=== PATIENT | female | born 1950 | race Caucasian/White ===

== ENCOUNTER 2020-01-21 10:39 | Outpatient (CLI) | payer MEDICARE, MEDICAID, SELFPAY ==
--- NOTE | ~2020-01-21 | MM_ITS ---
EXAMINATION: MM screening torie BI w daysi HISTORY: Screening mammogram TECHNIQUE: Craniocaudal and mediolateral oblique 3-D tomosynthesis images were obtained and synthetic 2-D images were generated. CAD analysis was submitted and interpreted. COMPARISON: 10/16/2018, 10/14/2017, 10/12/2016 bilateral digital screening mammogram examinations BREAST PARENCHYMAL COMPOSITION: There are scattered areas of fibroglandular density. FINDINGS: Stable since 5 5 mm opacity in the lower inner right breast with adjacent biopsy marker. Th ere is no evidence of suspicious mass, calcification, or architectural distortion to suggest malignan cy in either breast. There has been no suspicious interval change. IMPRESSION: 1. No mammographic evidence of malignancy. 2. Recommend routine screening mammography in one year. BI-RADS Category 2: Benign finding(s). Reviewed, dictated and finalized at location A.
== END 2020-01-21 10:40 | disposition home or self-care (01) ==
LOC: CHSIMG 10:45
PROVIDERS: PCP Internal Medicine; Visit Provider Internal Medicine
DX: Z12.31 Encounter for screening mammogram for malignant neoplasm of breast (principal)
CPT/HCPCS: 77063; 77067

== ENCOUNTER 2020-01-24 13:24 | Outpatient (CLI) | payer MEDICARE, MEDICAID, SELFPAY ==
--- NOTE | 2020-01-24 13:40 | ECG_ITS ---
Measurements Intervals [employer] Rate: 64 P: 69 DE: 232 QRS: 43 QRSD: 101 T: 1 QT: 425 QTc: 440 Interpretive Statements SINUS RHYTHM WITH FIRST DEGREE AV BLOCK VENTRICULAR PREMATURE COMPLEX BORDERLINE ST-T WAVE ABNORMALITY- INFERIOR LEADS ABNORMAL ECG Electronically Signed On 01-24-2020 16:18:31 CDT by Azeem Patyon D.O.
== END 2020-01-24 13:25 | disposition home or self-care (01) ==
LOC: CHSCARD 13:31
PROVIDERS: PCP Specialist; Visit Provider Specialist
DX: I49.9 Cardiac arrhythmia, unspecified (principal)
CPT/HCPCS: 93005

== ENCOUNTER 2020-02-13 09:34 | Outpatient (CLI) | payer MEDICARE, MEDICAID, SELFPAY ==
--- NOTE | ~2020-02-13 | DEXA_ITS ---
BMD(1) Young-Adult(2) Age-Matched(3) Region (g/cm2) T-score Z-score WHO Classification L1 0.962 -1.5 -0.3 Osteopenia L2 1.030 -1.5 -0.3 Osteopenia L3 1.224 0.1 1.3 Normal L4 1.332 0.9 2.1 Normal L1-L4 1.153 -0.3 0.9 Normal Trend: L1-L4 Change vs Change vs Measured Age BMD(1) Baseline Previous Date (years) (g/cm2) (%) (%) 02/13/2020 [age] 1.153 26.0* 7.1* 10[age]05/2017 67.1 1.077 17.7* 4.4* 04[age]09/2015 64.7 1.032 12.8* 1.4 03[age]30[birth year]2013 62.6 1.018 11.3* 11.3* 02[age]19/2011 [age] 0.915 baseline - * - Indicates significant change based on 95% confidence interval. 1 - Statistically 68% of repeat scans fall within 1SD (+- 0.010 g/cm2 for AP Spine L1-L4) 2 - [place] (Combined NHANES (ages 20-30) / XYDO (ages 20-40)) AP Spine Reference Population (v112) 3 - Matched for Age, Weight (females 25-100 kg), Ethnic 11 - World Health Organization - Definition of Osteoporosis and Osteopenia for Women: Normal = T-score at or above -1.0 SD; Osteopenia = T-score between -1.0 and -2.5 SD; Osteoporosis = T-score at or below -2.5 SD; (WHO definitions only apply when a young healthy Women reference database is used to determine T-scores.) Printed: 02/13/2020 10:22:53 AM (13.60)76:3.00:50.00:12.0 0.00:10.44 0.60x1.05 26.4:%Fat=53.8% 0.00:0.00 0.00:0.00 Filename: [id number] Scan Mode: Standard;OneScan 37.0 [place] [id number] BMD(1) Young-Adult(2,7) Age-Matched(3) Region (g/cm2) T-score Z-score WHO Classification Neck Left 0.745 -2.1 -0.7 Osteopenia Right 0.756 -2.0 -0.7 Osteopenia Mean 0.751 -2.1 -0.7 Osteopenia Difference 0.011 0.1 0.1 - Total Left 0.751 -2.0 -0.9 Osteopenia Right 0.766 -1.9 -0.8 Osteopenia Mean 0.758 -2.0 -0.9 Osteopenia Difference 0.015 0.1 0.1 - Hip Lagrange Length Comparison (mm) (Right = 100.3 mm) (Mean = 107.9 mm) (Left = 102.9 mm) Trend: Total Mean Change vs Change vs Measured Age BMD(1) Baseline Previous Date (years) (g/cm2) (%) (%) 02[age]13/2020 69.5 0.758 10.2* 4.3* 03[age]30/2013 62.6 0.727 5.7* 5.7* 02/19/2011 60.5 0.688 baseline - * - Indicates significant change based on 95% confidence interval. 1 - Statistically 68% of repeat scans fall within 1SD (+- 0.010 g/cm2 for DualFemur Total) 2 - [place] (Combined NHANES (ages 20-30) / XYDO (ages 20-40)) Femur Reference Population (v112) 3 - Matched for Age, Weight (females 25-100 kg), Ethnic 7 - DualFemur Total T-score difference is 0.1. Asymmetry is None. 11 - World Health Organization - Definition of Osteoporosis and Osteopenia for Women: Normal = T-score at or above -1.0 SD; Osteopenia = T-score between -1.0 and -2.5 SD; Osteoporosis = T-score at or below -2.5 SD; (WHO definitions only apply when a young healthy Women reference database is used to determine T-scores.) Printed: 02/13/2020 10:22:53 AM (13.60); Filename: [id number]; Right Femur; 17.7:%Fat=35.8%; Neck Angle (deg)= 59; Scan Mode: Standard 37.0 uGy; Left Femur; 17.8:%Fat=38.9%; Neck Angle (deg)= 69; Scan Mode: Standard 37.0 uGy [employer] [id number] Dear Char Persaud, Your patient Shirley Rose completed a BMD test on 02/13/2020 using the [employer] DXA System (analysis version: 13.60) manufactured
== END 2020-02-13 09:35 | disposition home or self-care (01) ==
LOC: CHSIMG 09:37
PROVIDERS: PCP Internal Medicine; Visit Provider Internal Medicine
DX: M81.0 Age-related osteoporosis without current pathological fracture (principal)
CPT/HCPCS: 77080

== ENCOUNTER 2021-01-22 08:15 | Outpatient (CLI) | payer MEDICARE, MEDICAID, SELFPAY ==
--- NOTE | ~2021-01-22 | MM_ITS ---
EXAMINATION: MM screening torie BI w daysi HISTORY: Screening mammogram TECHNIQUE: Craniocaudal and mediolateral oblique 3-D tomosynthesis images were obtained and synthetic 2-D images were generated. CAD analysis was submitted and interpreted. COMPARISON: 01/21/2020, 10/16/2018, 10/14/2017 bilateral digital screening mammogram examinations BREAST PARENCHYMAL COMPOSITION: There are scattered areas of fibroglandular density. FINDINGS: There is a biopsy marker associated with a stable circumscribed approximately 7 mm opacity in the lower inner quadrant of the right breast. There is no evidence of suspicious mass, calcificati on, or architectural distortion to suggest malignancy in either breast. There has been no suspicious interval change. IMPRESSION: 1. No mammographic evidence of malignancy. 2. Recommend routine screening mammography in one year. BI-RADS Category 2: Benign finding(s). Reviewed, dictated and finalized at location A.
== END 2021-01-22 08:16 | disposition home or self-care (01) ==
LOC: CHSIMG 08:16
PROVIDERS: PCP Internal Medicine; Visit Provider Internal Medicine
DX: Z12.31 Encounter for screening mammogram for malignant neoplasm of breast (principal)
CPT/HCPCS: 77063; 77067

== ENCOUNTER 2021-12-04 19:57 | Emergency (ER) | payer MEDICARE, MEDICAID, SELFPAY ==
--- NOTE | ~2021-12-04 | CT_ITS ---
EXAMINATION: CT cervical spine wo con DATE: 12/04/2021 20:35 INDICATION: Patient fell today. Head and neck pain. TECHNIQUE: Computed tomography (CT) of the cervical spine was performed without intravenous contrast. Automated exposure control and iterative reconstruction technique were employed. Exam dose: 681.00 mGy-cm total exam DLP. COMPARISON: None FINDINGS: There is reversal of cervical curvature which may be due to positioning and/or muscle spasm . There is mild dextro scoliosis of the cervical spine. No fracture or dislocation or locked facet or prevertebral soft tissue swelling. There is mild degenerative disc disease at C5-6. Remaining cervical interspaces are relatively well p reserved.. There is mild degenerative change at the apophyseal joints. IMPRESSION: Reversal of cervical curvature and mild dextroscoliosis of cervical spine No fracture or dislocation or locked facet Mild degenerative disc disease at C5-6 Reviewed, dictated and finalized at Location A. Reviewed, dictated and finalized at location A. IMPRESSION: Reversal of cervical curvature and mild dextroscoliosis of cervica l spine No fracture or dislocation or locked facet Mild degenerative disc disease at C5-6
--- NOTE | ~2021-12-04 | CT_ITS ---
EXAMINATION: CT brain wo con DATE: 12/04/2021 20:34 INDICATION: Fall today. Neck and head pain TECHNIQUE: Computed tomography (CT) of the head was performed without intravenous contrast. The mA wa s adjusted according to patient size. Iterative reconstruction technique was employed. Exam dose: 68 1.00 mGy-cm total exam DLP. COMPARISON: 02/01/2018 MRI brain 04/22/2017 CT head FINDINGS: Bilateral carotid siphon internal carotid artery calcifications. There is nonspecific dimin ished attenuation of the cerebral white matter, likely due to chronic small vessel ischemic changes. There is moderate cerebral and cerebellar volume loss. No intracranial mass lesion or hemorrhage, midline shift or mass effect effect. No subdural or epidur al hematoma. The mastoid air cells and included paranasal sinuses are unremarkable. No fracture or bone destruction of the cranial vault. IMPRESSION: Cerebral atherosclerosis and chronic small vessel ischemic changes of cerebral white mat ter No acute intracranial finding or skull fracture Reviewed, dictated and finalized at Location A. Reviewed, dictated and finalized at location A. IMPRESSION: Cerebral atherosclerosis and chronic small vessel ischemic changes of cerebral white matter No acute intracranial finding or skull fracture
[2021-12-04 20:14] VITALS: BP 120/68; PULSE 68; RESP 16; TEMP 36.7; O2SAT 94
--- NOTE | 2021-12-04 20:15 | ED.GENADULT ---
HPI - General Adult General Chief complaint: Fall Stated complaint: AMB History of Present Illness HPI narrative: Shirley is a 71F with an unknown PMH (suspect cognitive deficit, HTN, HLD) that was brought in by EMS from [facility] after a fall. She was walking in her room when she tripped and fell back and hit her head. There was no LOC. She denies N/V and any other pain. Related Data Home Medications Medication Instructions Recorded Confirmed apixaban 5 mg tablet (Eliquis) 5 tablet PO DAILY 12/04/21 12/04/21 buspirone 5 mg tablet 5 tablet PO DAILY 12/04/21 12/04/21 divalproex 250 mg tablet,delayed 250 tablet PO DAILY 12/04/21 12/04/21 release divalproex 500 mg tablet,delayed 500 tablet PO DAILY 12/04/21 12/04/21 release famotidine 40 mg tablet 40 tablet PO DAILY 12/04/21 12/04/21 lorazepam 0.5 mg tablet 0.5 tablet PO DAILY 12/04/21 12/04/21 memantine 5 mg tablet 5 tablet PO DAILY 12/04/21 12/04/21 metoprolol tartrate 25 mg tablet 25 tablet PO DAILY 12/04/21 12/04/21 propafenone 225 mg 225 cap PO DAILY 12/04/21 12/04/21 capsule,extended release 12 hr rosuvastatin 10 mg tablet 10 tablet PO DAILY 12/04/21 12/04/21 sertraline 50 mg tablet 50 tablet PO DAILY 12/04/21 12/04/21 Allergies Allergy/AdvReac Type Severity Reaction Status Date / Time No Known Allergies Allergy Unverified 03/05/16 08:10 Review of Systems Review of Systems: All systems reviewed & are unremarkable except as noted in HPI and below PMFSH Social History Social History Alcohol intake: never Exam Const: General: healthy appearing and no acute distress Nutritional Appearance: well nourished HENMT: Other: Contusion and swelling on the back of the head but no other injuries noted Eyes: Conjunctivae: conjunctivae normal Pupils: Equal, round and reactive pupils present EOM: EOMs intact bilaterally Neck: Neck: normal visual inspection Chest: Chest palpation & inspection: normal inspection of the chest Resp: Effort & Inspection: normal respiratory effort Auscultation: clear to auscultation bilaterally Cardio: Rate: regular rate Rhythm: regular rhythm GI: Other: Normal to inspection and not TTP Skin: General skin exam: normal color Rashes: no rashes Wounds: no wounds Neuro: General: patient oriented x3, moves all extremities and no meningeal signs Other: Oriented to person and place but not time. Extrem: Other: No deformity Psych: Mental Status: mental status grossly normal Course Course Emergency Course: EXAMINATION: CT brain wo con DATE: 12/04/2021 20:34 INDICATION: Fall today. Neck and head pain TECHNIQUE: Computed tomography (CT) of the head was performed without intravenous contrast. The mA was adjusted according to patient size. Iterative reconstruction technique was employed. Exam dose:? 681.00 mGy-cm total exam DLP.? COMPARISON: 02/01/2018 MRI brain 04/22/2017 CT head FINDINGS: Bilateral carotid siphon internal carotid artery calcifications. There is nonspecific diminished attenuation of the cerebral white matter, likely due to chronic small vessel ischemic changes. There is moderate cerebral and cerebellar volume loss. No intracranial mass lesion or hemorrhage, midline shift or mass effect effect. No subdural or epidural hematoma. The mastoid air cells and included paranasal sinuses are unremarkable. No fracture or bone destruction of the cranial vault. IMPRESSION:? Cerebral atherosclerosis and chronic small vessel ischemic changes of cerebral white matter No acute intracranial finding or skull fracture EXAMINATION: CT cervical spine wo con DATE: 12/04/2021 20:35 INDICATION: Patient fell today. Head and neck pain. TECHNIQUE: Computed tomography (CT) of the cervical spine was performed without intravenous contrast. Automated exposure control and iterative reconstruction technique were employed. Exam dose:? 681.00 mGy-cm total exam DLP.? COMPARISON: None FINDINGS: There is reversal of cervical curvature which
--- NOTE | 2021-12-04 20:55 | PC.NURSE ---
sabrina at [facility] care called that pt is ready for DC
[2021-12-04 21:01] VITALS: BP 111/61; PULSE 88; RESP 16; O2SAT 94
== END 2021-12-04 21:02 ==
PROVIDERS: Emergency Provider Family Medicine; PCP Internal Medicine
DX: S09.90XA Unspecified injury of head, initial encounter (principal); W01.0XXA Fall on same level from slipping, tripping and stumbling without subsequent striking against object, initial encounter
CPT/HCPCS: 70450; 72125; 99284

== ENCOUNTER 2022-02-15 07:04 | Outpatient (CLI) | payer MEDICARE, SELFPAY ==
[2022-02-15 07:22] LABS: Hematocrit 40.8 % (35.0-42.0); Immature Platelet Fraction Pct 1.8 % (1.0-7.0); Mean Corpuscular HGB Conc 34.3 g/dL (32.0-36.0); Mean Corpuscular Hemoglobin 32.6 pg (27.0-31.0); Mean Corpuscular Volume 95.1 fL (78.0-102.0); Mean Platelet Volume 8.9 fl (9.2-11.8); Platelet Count Result 70 K/mm3 (150-420); Red Blood Count 4.29 M/mm3 (4.20-5.40); White Blood Count 3.2 K/mm3 (4.8-10.8)
[2022-02-15 07:45] LABS: Alanine Aminotransferase 20 U/L (14-59); Albumin Level 3.3 g/dL (3.4-5.0); Alkaline Phosphatase 54 U/L (46-116); Anion Gap 7 mmol/L (8-16); Aspartate Amino Transferase 16 U/L (15-37); Bilirubin,Total 0.4 mg/dL (0.00-1.00); Blood Urea Nitrogen 17 mg/dL (7-18); Calcium 8.8 mg/dL (8.5-10.1); Carbon Dioxide 26 mmol/L (21-32); Chloride 108 mmol/L (98-108); Cholesterol 120 mg/dL (0-200); Estimated Glomerular Filt Rate 44; Free T4 Free Thyroxine 0.84 ng/dL (0.76-1.46); Glucose 89 mg/dL (70-99); HDL Direct 49 mg/dL (40-60); LDL Cholesterol Calculated 44 mg/dL (<130); Osmolality Calculated 292 mOsm/kg (285-295); Potassium 4.1 mmol/L (3.5-5.1); Sodium 141 mmol/L (136-145); Thyroid Stimulating Hormone 2.21 uIU/mL (0.36-3.74); Total Protein 5.7 g/dL (6.4-8.2); Triglycerides 134 mg/dL (0-150)
[2022-02-15 07:55] LABS: Band Neutrophils Percent 0 % (0-6); Lymphocytes Absolute Manual 1.08 K/mm3 (1.1-4.5); Lymphocytes Percent Manual 34 % (18-44); Monocytes Absolute Manual 0.57 K/mm3 (0.1-0.90); Monocytes Percent Manual 18 % (3-9); Neutrophils Absolute Manual 1.53 K/mm3 (1.7-7.2); Neutrophils Percent Manual 48 % (46-73); Platelet Estimate Decreased (Adequate); Total Cells Counted 100
[2022-02-18 22:12] LABS: Vitamin D 25 Hydroxy 45 ng/mL (30-100)
== END 2022-02-15 07:05 | disposition home or self-care (01) ==
LOC: CHSLAB 07:06
PROVIDERS: PCP Internal Medicine; Visit Provider Internal Medicine
DX: E78.5 Hyperlipidemia, unspecified (principal); I10 Essential (primary) hypertension; N39.0 Urinary tract infection, site not specified; R53.83 Other fatigue; M81.0 Age-related osteoporosis without current pathological fracture
CPT/HCPCS: 36415; 80053; 80061; 82306; 84439; 84443; 85025; 85055

== ENCOUNTER 2022-02-23 14:19 | Emergency (ER) | payer MEDICARE, MEDICAID, SELFPAY ==
--- NOTE | ~2022-02-23 | CT_ITS ---
EXAMINATION: CT abdomen pelvis wo con DATE: 02/23/2022 15:23 INDICATION: Right upper quadrant abdominal pain, nausea and vomiting, weakness for one week. TECHNIQUE: Computed tomography (CT) of the abdomen and pelvis was performed without intravenous contr ast. Automated exposure control and iterative reconstruction technique were employed. Exam dose: 722 .00 mGy-cm total exam DLP. COMPARISON: None. FINDINGS: Patchy bilateral lower lobe infiltrate and/atelectasis and minimal dependent left upper lob e infiltrate or atelectasis. No pleural or pericardial effusion. Cardiomegaly. Status post cholecystectomy. There is pancreatic atrophy. No hepatic, splenic, pancreatic, and adrena l or renal space-occupying mass lesion is detected. No urinary tract calculus or hydroureteronephrosi s. Uterus, adnexal areas and urinary bladder are unremarkable. Normal caliber of the abdominal aorta. No intraperitoneal or retroperitoneal or pelvic mass lesion or adenopathy or ascites. Small sliding hiatal hernia. Diverticulosis of the colon; no CT evidence of diverticulitis. Normal ap pendix. No bowel obstruction, bowel wall thickening, pneumatosis or intraperitoneal free air. Old healed rib fractures. IMPRESSION: Status post cholecystectomy Pancreatic atrophy Small sliding hiatal hernia Diverticulosis of the colon cervical no diverticulitis Normal appendix Patchy bilateral lower lung infiltrates and/or atelectasis Reviewed, dictated and finalized at Location A. Reviewed, dictated and finalized at location B.
--- NOTE | ~2022-02-23 | CT_ITS ---
EXAMINATION: CT brain wo con DATE: 02/23/2022 15:23 INDICATION: Weakness. TECHNIQUE: Computed tomography (CT) of the head was performed without intravenous contrast. The mA wa s adjusted according to patient size. Iterative reconstruction technique was employed. The dose-lengt h product was 681.00 mGy-cm. COMPARISON: Head CT 12/04/2021, brain MRI 02/01/2018 FINDINGS: There is no intracranial hemorrhage, acute infarction, or abnormal intracranial mass lesion . The ventricles are normal in size. The mastoid air cells are normal. There is mild mucosal thickeni ng in the ethmoid sinuses. The orbits are normal. IMPRESSION: 1. Normal brain. Reviewed, dictated and finalized at location A. IMPRESSION: 1. Normal brain.
--- NOTE | ~2022-02-23 | XR_ITS ---
EXAMINATION: XR chest 1V portable DATE: 02/23/2022 15:23 INDICATION: Chest pain. TECHNIQUE: A single frontal view of the chest was obtained. COMPARISON: Chest single view 02/20/2014, CT abdomen and pelvis 02/23/2022 FINDINGS: There is chronic mild elevation of right hemidiaphragm. There is mild atelectasis in the mi d and lower lung zones. No pleural effusion or pneumothorax. Cardiomegaly is noted. Surgical clips in the right upper quadrant are likely from cholecystectomy. IMPRESSION: 1. Mild atelectasis in the mid and lower lung zones. 2. Cardiomegaly. Reviewed, dictated and finalized at location A.
[2022-02-23 14:31] VITALS: BP 114/52; PULSE 73; RESP 20; TEMP 36.2; O2SAT 96
--- NOTE | 2022-02-23 14:37 | ECG_ITS ---
Measurements Intervals [place] Rate: 74 P: 93 AK: 219 QRS: 34 QRSD: 118 T: 12 QT: 378 QTc: 420 Interpretive Statements SINUS RHYTHM WITH FIRST DEGREE AV BLOCK WITH OCCASIONAL VENTRICULAR PREMATURE COMPLEXES MODERATE INTRAVENTRICULAR CONDUCTION DELAY [110+ ms QRS DURATION] NONSPECIFIC T-WAVE ABNORMALITY LOW VOLTAGE EKG COMPARED TO ECG 01/24/2020 13:54:56 INTRAVENTRICULAR CONDUCTION DELAY NOW PRESENT T-WAVE ABNORMALITY NOW PRESENT Electronically Signed On 02-23-2022 20:35:40 CDT by Eliza Herbert M.D.
[2022-02-23 15:08] LABS: Hematocrit 39.3 % (35.0-42.0); Immature Granulocyte Absolute 0.01 K/mm3 (0.00-0.00); Immature Granulocyte Percent A 0.2 % (0.0-0.0); Immature Platelet Fraction Pct 1.5 % (1.0-7.0); Lymphocytes Absolute Auto 1.12 K/mm3 (1.10-4.50); Lymphocytes Percent Auto 19.8 % (18.0-42.0); Mean Corpuscular HGB Conc 33.1 g/dL (32.0-36.0); Mean Corpuscular Hemoglobin 32.3 pg (27.0-31.0); Mean Corpuscular Volume 97.8 fL (78.0-102.0); Mean Platelet Volume 9.5 fl (9.2-11.8); Monocytes Percent Auto 12.4 % (2.0-11.0); Neutrophils Absolute Auto 3.8 K/mm3 (1.7-7.2); Neutrophils Percent Auto 67.6 % (50.0-70.0); Platelet Count Result 53 K/mm3 (150-420); Red Blood Count 4.02 M/mm3 (4.20-5.40); Red Cell Distribution Width 13.2 % (11.6-14.4); White Blood Count 5.7 K/mm3 (4.8-10.8)
[2022-02-23 15:30] LABS: Alanine Aminotransferase 14 U/L (14-59); Alkaline Phosphatase 48 U/L (46-116); Anion Gap 7 mmol/L (8-16); Aspartate Amino Transferase 14 U/L (15-37); Bilirubin,Total 0.8 mg/dL (0.00-1.00); Blood Urea Nitrogen 23 mg/dL (7-18); Calcium 8.9 mg/dL (8.5-10.1); Carbon Dioxide 27 mmol/L (21-32); Chloride 108 mmol/L (98-108); Estimated CRCL calculation 38 ml/min; Estimated Glomerular Filt Rate 50; Glucose 81 mg/dL (70-99); Lipase 33 U/L (73-393); Osmolality Calculated 296 mOsm/kg (285-295); Potassium 3.4 mmol/L (3.5-5.1); Sodium 142 mmol/L (136-145); Total Protein 5.8 g/dL (6.4-8.2)
[2022-02-23] MEDS: SODIUM CHLORIDE 0.9% IV 500 ML 999 ML IV CONT (15:45)
[2022-02-23] MEDS: ONDANSETRON INJ 4 MG/2 ML VIAL IV PUSH (15:46)
[2022-02-23] MEDS: PANTOPRAZOLE SODIUM IV 40 MG VIAL IV PUSH (15:46)
[2022-02-23 15:51] LABS: Lactic Acid Reflex 1.2 mmol/L (0.4-2.0)
--- NOTE | 2022-02-23 16:26 | ED.WEAKNESS ---
HPI - Weakness General Chief complaint: Weakness Stated complaint: AMBULANCE Time Seen by Provider: 02/23/22 14:21 Source: patient, EMS and RN notes reviewed Mode of arrival: EMS Limitations: no limitations History of Present Illness MD Complaint: generalized weakness Onset (ago): day(s) (2) Duration: constant Location: generalized Migration: none Severity: moderate Quality: numbness Relieving factors: none Exacerbating factors: none Associated symptoms: nausea/vomiting Related Data Home Medications Medication Instructions Recorded Confirmed apixaban 5 mg tablet (Eliquis) 5 tablet PO DAILY 12/04/21 03/03/22 buspirone 5 mg tablet 5 tablet PO TID 12/04/21 03/03/22 divalproex 250 mg tablet,delayed 250 tablet PO DAILY 12/04/21 03/03/22 release divalproex 500 mg tablet,delayed 500 tablet PO BID 12/04/21 03/03/22 release famotidine 40 mg tablet 40 tablet PO DAILY 12/04/21 03/03/22 lorazepam 0.5 mg tablet 0.5 tablet PO TID 12/04/21 03/03/22 memantine 5 mg tablet 5 tablet PO BID 12/04/21 03/03/22 metoprolol tartrate 25 mg tablet 12.5 mg PO BID 12/04/21 03/03/22 propafenone 225 mg 225 cap PO BID 12/04/21 03/03/22 capsule,extended release 12 hr rosuvastatin 10 mg tablet 10 tablet PO DAILY 12/04/21 03/03/22 sertraline 50 mg tablet 50 tablet PO DAILY 12/04/21 03/03/22 aspirin 81 mg tablet,delayed 81 mg PO DAILY 02/23/22 03/03/22 release cholecalciferol (vitamin D3) 25 25 mcg PO DAILY 02/23/22 03/03/22 mcg (1,000 unit) tablet (Vitamin D3) Allergies Allergy/AdvReac Type Severity Reaction Status Date / Time No Known Allergies Allergy Unverified 03/03/22 18:11 Review of Systems Review of Systems: All systems reviewed & are unremarkable except as noted in HPI and below Constitutional: Constitutional: Reports no additional constitutional complaints Eyes: Eyes: Reports no additional eye complaints ENT: Reports system reviewed and no additional complaints, except as documented Cardiovascular: Cardiovascular: Reports no additional cardiovascular complaints Respiratory: Respiratory: Reports no additional respiratory complaints Gastrointestinal: Gastrointestinal: Reports no additional gastrointestinal complaints Genitourinary: Genitourinary: Reports no additional female genitourinary complaints Musculoskeletal: Musculoskeletal: Reports muscle cramps Comments: generalized weaknessn Integumentary/Breasts: Skin/Breast: Reports system reviewed and no additional complaints, except as docu Neurologic: Reports system reviewed and no additional complaints, except as documented Psychiatric: Psychiatric: Reports no additional psychiatric complaints Endocrine: Endocrine: Reports no additional endocrine complaints Hematologic/Lymphatic: Hematologic/Lymphatic: Reports no additional hematologic/lymphatic complaints Allergic/Immunologic: Allergic/Immunologic: Reports no additional allergic/immunologic complaints PMFSH Past Medical History Medical History Generalized weakness Social History Social History Alcohol intake: never Exam Const: General: no acute distress Nutritional Appearance: well nourished Orientation/consciousness: patient oriented x3 Limitations: no limitations HENMT: Head: normal to inspection Ears: external ears normal, TM's normal bilaterally and EAC's normal General nose exam: Normal external nose present and Normal nares present Face and sinus: normal facial exam and sinuses nontender Mouth: Yes Normal oral and palatal mucosa present and Yes moist mucous membranes Teeth and gingiva: dentition normal Throat: posterior oropharynx normal Eyes: Conjunctivae: conjunctivae normal Pupils: Equal, round and reactive pupils present EOM: EOMs intact bilaterally Neck: Neck: normal visual inspection, no lymphadenopathy and no meningeal signs Chest: Chest palpation & inspect
[2022-02-23 17:10] VITALS: BP 115/63; PULSE 93; RESP 20; TEMP 36.1; O2SAT 94
== END 2022-02-23 17:10 | disposition home or self-care (01) ==
PROVIDERS: Emergency Provider Emergency Medicine; PCP Internal Medicine
DX: E86.0 Dehydration (principal); R53.1 Weakness
CPT/HCPCS: 36415; 70450; 71045; 74176; 80053; 83605; 83690; 85025; 85055; 93005; 96361; 96374; 96375; 99284; C9113; J2405; J7040

== ENCOUNTER 2022-03-03 17:57 | Emergency (ER) | payer MEDICARE, MEDICAID, SELFPAY ==
--- NOTE | ~2022-03-03 | CT_ITS ---
EXAMINATION: CT pelvis wo con DATE: 03/03/2022 19:16 INDICATION: Fall. TECHNIQUE: Computed tomography (CT) of the pelvis was performed without intravenous contrast. Automat ed exposure control and iterative reconstruction technique were employed. The dose-length product was 330.26 mGy-cm. COMPARISON: CT abdomen and pelvis 02/23/2022. FINDINGS: Diverticulosis without diverticulitis. Normal appendix. Mild bladder wall thickening/inflam mation. Decreased bone mineral density. Mild degenerative changes in the bilateral hips and symphysis . Lower lumbar disc disease. Edema overlying the hips. IMPRESSION: No acute osseous finding the pelvis. Possible cystitis. Reviewed, dictated and finalized at location K.
--- NOTE | ~2022-03-03 | CT_ITS ---
EXAMINATION: CT brain wo con DATE: 03/03/2022 19:15 INDICATION: Fall. Right frontal laceration TECHNIQUE: Computed tomography (CT) of the head was performed without intravenous contrast. The mA wa s adjusted according to patient size. Iterative reconstruction technique was employed. Exam dose: 68 1.00 mGy-cm total exam DLP. COMPARISON: 02/23/2022 CT brain FINDINGS: There is a right periorbital hematoma and right frontal cephalohematoma. No coup or contrec oup intracranial injury is noted. There is mild cerebral atherosclerotic calcification. There is mild cerebral and cerebellar volume loss. No intracranial mass lesion or hemorrhage or cerebrovascular accident, midline shift or mass effect i s detected. No subdural or epidural hematoma. The orbital contents are unremarkable. Nasal bones, orbital reynolds, frontozygomatic sutures and skull bones appear intact, without fracture The mastoid air cells and paranasal sinuses are normally developed and aerated. IMPRESSION: Right periorbital hematoma and frontal cephalhematoma; no skull fracture or acute intrac ranial finding Reviewed, dictated and finalized at Location A. Reviewed, dictated and finalized at location A. IMPRESSION: Right periorbital hematoma and frontal cephalhematoma; no skull fr acture or acute intracranial finding
--- NOTE | ~2022-03-03 | XR_ITS ---
XR chest 1V portable DATE: 03/03/2022 19:16 INDICATION: Chest pain after a fall today TECHNIQUE: 2 portable AP views on 03/03/2000 22,000 1907 hours COMPARISON: 02/23/2022 portable AP chest FINDINGS: There is diffuse osteopenia. Bilateral rotator cuff atrophy. Seventh and eighth and probable ninth left rib fractures, likely recent. Diaphragm is relatively high; there is suggestion of left lower lung infiltrate or atelectasis. The l ungs otherwise appear clear. No pneumothorax. The left costophrenic angle is not defined; cannot exclude small left pleural effusion. IMPRESSION: Limited portable study suggesting lateral left seventh through ninth rib fractures, possi ble small pleural effusion, possible left lower lung infiltrate or atelectasis Diffuse osteopenia Reviewed, dictated and finalized at location A. IMPRESSION: Limited portable study suggesting lateral left seventh through nint h rib fractures, possible small pleural effusion, possible left lower lung infi ltrate or atelectasis Diffuse osteopenia
--- NOTE | ~2022-03-03 | CT_ITS ---
EXAMINATION: CT cervical spine wo con DATE: 03/03/2022 19:15 INDICATION: fall laceration @ RT frontal skull TECHNIQUE: Computed tomography (CT) of the cervical spine was performed without intravenous contrast. Automated exposure control and iterative reconstruction technique were employed. The dose-length pro duct was 330.26 mGy-cm. COMPARISON: 12/05/2019 FINDINGS: Vertebral Body Alignment: Intact. Reversed lordosis, likely secondary to positioning or muscle spasm. Mild cervical scoliosis. Craniocervical and atlantoaxial alignment: Moderate degenerative change. Alignment intact. Osseous structures/fracture: No evidence of a lytic or blastic process in the visualized spine. No e vidence of acute fracture. Right C5-C6 transverse process pseudarthrosis.i Cervical soft tissues: The paraspinal soft tissues planes are maintained. Interlobular septal thicken ing at the apices. Degenerative changes: Degenerative changes, without severe neural foraminal or central canal narrowin g. IMPRESSION: No acute fracture or traumatic malalignment in the cervical spine. Interstitial pulmonary edema. Reviewed, dictated and finalized at location K.
--- NOTE | ~2022-03-03 | CT_ITS ---
EXAMINATION: CT diagnostic chest wo con DATE: 03/03/2022 19:57 INDICATION: fall, rib Fx?, pneumonia TECHNIQUE: Computed tomography (CT) of the chest was performed with 100 mL Omnipaque-350 intravenous contrast. Automated exposure control and iterative reconstruction technique were employed. The dose-l ength product was 196.41 mGy-cm. COMPARISON: X-ray chest, same date. FINDINGS: CHEST: Thoracic aorta: No significant dilation. Minimal arterial calcification. Lung parenchyma and airways: Bilateral dependent atelectasis. Mild interstitial edema. Senescent lora ges. Thoracic inlet, axillae and chest wall: No thyroid or soft tissue mass. No axillary lymphadenopathy. Mediastinum: No mass or lymphadenopathy. Central pulmonary arterial dilation is seen with pulmonary a rterial hypertension. Heart and pericardium: Mild cardiomegaly. No pericardial effusion. Coronary artery calcifications: Absent. Pleura: No effusion or mass. Upper abdomen: Prior cholecystectomy. Granulomatous splenic calcification. Thoracic bones: No acute osseous finding in the chest. Multiple bilateral predominantly anterior heal ed rib fractures. Scoliosis. IMPRESSION: No acute thoracic process detected. Interstitial pulmonary edema. Reviewed, dictated and finalized at location K.
[2022-03-03 18:04] VITALS: BP 129/66; PULSE 71; RESP 20; TEMP 36.6; O2SAT 94
--- NOTE | 2022-03-03 18:18 | ECG_ITS ---
Measurements Intervals [place] Rate: 69 P: 83 MO: 223 QRS: 18 QRSD: 101 T: -8 QT: 379 QTc: 407 Interpretive Statements SINUS RHYTHM WITH FIRST DEGREE AV BLOCK VENTRICULAR TRIGEMINY NONSPECIFIC ST & T-WAVE ABNORMALITY- ANTEROLAT/INF LEADS BASELINE ARTIFACT- I, II, III, AVR, AVL, AVF, V1-V6 ABNORMAL ECG COMPARED TO ECG 02/23/2022 14:46:39 VENTRICULAR TRIGEMINY NOW PRESENT Electronically Signed On 03-03-2022 19:31:08 CDT by Azeem Payton D.O.
[2022-03-03 18:47] LABS: Hematocrit 38.7 % (35.0-42.0); Hemoglobin 12.9 g/dL (11.7-13.8); Immature Platelet Fraction Pct 1.2 % (1.0-7.0); Mean Corpuscular HGB Conc 33.3 g/dL (32.0-36.0); Mean Corpuscular Hemoglobin 32.3 pg (27.0-31.0); Platelet Count Result 65 K/mm3 (150-420); Red Blood Count 3.99 M/mm3 (4.20-5.40); Red Cell Distribution Width 13.3 % (11.6-14.4); White Blood Count 3.4 K/mm3 (4.8-10.8)
[2022-03-03] MEDS: ACETAMINOPHEN 325 MG TABLET 650 MG PO (18:52)
[2022-03-03] MEDS: TETANUS,DIPHTHERIA,AC PERTUSSIS ADULT 0.5 ML (ADACEL) IM (18:53)
[2022-03-03] MEDS: SODIUM CHLORIDE 0.9% IV 500 ML 999 ML IV CONT (18:54)
[2022-03-03 19:03] LABS: Alanine Aminotransferase 23 U/L (14-59); Alkaline Phosphatase 51 U/L (46-116); Anion Gap 8 mmol/L (8-16); Aspartate Amino Transferase 29 U/L (15-37); Bilirubin,Total 0.4 mg/dL (0.00-1.00); Blood Urea Nitrogen 21 mg/dL (7-18); Calcium 8.8 mg/dL (8.5-10.1); Carbon Dioxide 28 mmol/L (21-32); Chloride 105 mmol/L (98-108); Estimated Glomerular Filt Rate 44; Glucose 103 mg/dL (70-99); Osmolality Calculated 295 mOsm/kg (285-295); Potassium 3.3 mmol/L (3.5-5.1); Sodium 141 mmol/L (136-145); Total Protein 5.6 g/dL (6.4-8.2); Troponin I 14.9 ng/L (0.00-60.4)
[2022-03-03 19:05] LABS: Lactic Acid Reflex 1.1 mmol/L (0.4-2.0)
[2022-03-03 19:07] LABS: Band Neutrophils Percent 0 % (0-6); Basophils Percent Manual 0 % (0-1); Eosinophils Percent Manual 0 % (1-6); Lymphocytes Absolute Manual 0.91 K/mm3 (1.1-4.5); Lymphocytes Percent Manual 27 % (18-44); Monocytes Absolute Manual 0.47 K/mm3 (0.1-0.90); Monocytes Percent Manual 14 % (3-9); Neutrophils Percent Manual 59 % (46-73); Total Cells Counted 100
[2022-03-03 19:08] LABS: Platelet Estimate Decreased (Adequate)
[2022-03-03] MEDS: POTASSIUM CHLORIDE 20 MEQ TABLET PO (19:58)
[2022-03-03] MEDS: FUROSEMIDE INJ 100 MG/10 ML VIAL 80 MG IV PUSH (19:58)
[2022-03-03 20:24] LABS: SARS-CoV-2 RNA PCR Negative (Negative)
--- NOTE | 2022-03-03 20:43 | ED.WOUNDLAC ---
HPI - Wound/Laceration General Chief Complaint: Wound/Laceration Stated Complaint: amb Time Seen by Provider: 03/03/22 18:01 Source: patient, EMS and RN notes reviewed Mode of arrival: EMS Limitations: no limitations History of Present Illness Onset (ago): hour(s) Location: face Place: home Context: accidental and fall Associated symptoms: pain Related Data Home Medications Medication Instructions Recorded Confirmed apixaban 5 mg tablet (Eliquis) 5 tablet PO DAILY 12/04/21 03/03/22 buspirone 5 mg tablet 5 tablet PO TID 12/04/21 03/03/22 divalproex 250 mg tablet,delayed 250 tablet PO DAILY 12/04/21 03/03/22 release divalproex 500 mg tablet,delayed 500 tablet PO BID 12/04/21 03/03/22 release famotidine 40 mg tablet 40 tablet PO DAILY 12/04/21 03/03/22 lorazepam 0.5 mg tablet 0.5 tablet PO TID 12/04/21 03/03/22 memantine 5 mg tablet 5 tablet PO BID 12/04/21 03/03/22 metoprolol tartrate 25 mg tablet 12.5 mg PO BID 12/04/21 03/03/22 propafenone 225 mg 225 cap PO BID 12/04/21 03/03/22 capsule,extended release 12 hr rosuvastatin 10 mg tablet 10 tablet PO DAILY 12/04/21 03/03/22 sertraline 50 mg tablet 50 tablet PO DAILY 12/04/21 03/03/22 aspirin 81 mg tablet,delayed 81 mg PO DAILY 02/23/22 03/03/22 release cholecalciferol (vitamin D3) 25 25 mcg PO DAILY 02/23/22 03/03/22 mcg (1,000 unit) tablet (Vitamin D3) Allergies Allergy/AdvReac Type Severity Reaction Status Date / Time No Known Allergies Allergy Unverified 03/03/22 18:11 Review of Systems Review of Systems: All systems reviewed & are unremarkable except as noted in HPI and below Constitutional: Constitutional: Reports no additional constitutional complaints Eyes: Eyes: Reports no additional eye complaints ENT: Reports system reviewed and no additional complaints, except as documented Cardiovascular: Cardiovascular: Reports no additional cardiovascular complaints Respiratory: Respiratory: Reports no additional respiratory complaints Gastrointestinal: Gastrointestinal: Reports no additional gastrointestinal complaints Genitourinary: Genitourinary: Reports no additional female genitourinary complaints Musculoskeletal: Musculoskeletal: Reports no additional musculoskeletal complaints Integumentary/Breasts: Skin/Breast: Reports system reviewed and no additional complaints, except as docu Neurologic: Reports system reviewed and no additional complaints, except as documented Psychiatric: Psychiatric: Reports no additional psychiatric complaints Endocrine: Endocrine: Reports no additional endocrine complaints Hematologic/Lymphatic: Hematologic/Lymphatic: Reports no additional hematologic/lymphatic complaints Allergic/Immunologic: Allergic/Immunologic: Reports no additional allergic/immunologic complaints PMFSH Past Medical History Medical History Cystitis Fall Generalized weakness Pulmonary edema Social History Social History Alcohol intake: never Exam Const: General: no acute distress Nutritional Appearance: well nourished Orientation/consciousness: patient oriented x3 Limitations: no limitations HENMT: Head: hematoma (right anmol-orbital swelling with right frontal cephal-hematoma.) Ears: external ears normal, TM's normal bilaterally and EAC's normal General nose exam: Normal external nose present and Normal nares present Face and sinus: sinuses nontender Mouth: Yes Normal oral and palatal mucosa present and Yes moist mucous membranes Teeth and gingiva: dentition normal Throat: posterior oropharynx normal Eyes: Conjunctivae: conjunctivae normal Pupils: Equal, round and reactive pupils present EOM: EOMs intact bilaterally Neck: Neck: normal visual inspection, no lymphadenopathy and no meningeal signs Chest: Chest palpation & inspection: normal inspection of the chest Resp: Effort & Inspection: normal resp
--- NOTE | 2022-03-03 21:14 | PC.NURSE ---
Jacey called at facility with report
[2022-03-03 21:43] VITALS: BP 125/88; PULSE 88; RESP 18; O2SAT 95
== END 2022-03-03 21:45 | disposition home or self-care (01) ==
PROVIDERS: Emergency Provider Emergency Medicine; PCP Internal Medicine
DX: J81.1 Chronic pulmonary edema (principal); N30.90 Cystitis, unspecified without hematuria; Z20.822 Contact with and (suspected) exposure to COVID-19; W19.XXXA Unspecified fall, initial encounter
CPT/HCPCS: 36415; 70450; 71045; 71250; 72125; 72192; 80053; 83605; 84484; 85025; 85055; 90471; 90715; 93005; 96361; 96365; 96375; 99284; A9270; C9803; J0696; J1940; J7040; U0003; U0005

== ENCOUNTER 2022-03-25 10:39 | Outpatient (CLI) | payer MEDICARE, MEDICAID, SELFPAY ==
[2022-03-25 10:57] LABS: Hematocrit 39.1 % (35.0-42.0); Hemoglobin 13.1 g/dL (11.7-13.8); Immature Platelet Fraction Pct 1.1 % (1.0-7.0); Mean Corpuscular HGB Conc 33.5 g/dL (32.0-36.0); Mean Corpuscular Hemoglobin 32.6 pg (27.0-31.0); Mean Corpuscular Volume 97.3 fL (78.0-102.0); Platelet Count Result 79 K/mm3 (150-420); Red Blood Count 4.02 M/mm3 (4.20-5.40); Red Cell Distribution Width 13.2 % (11.6-14.4); White Blood Count 3.8 K/mm3 (4.8-10.8)
[2022-03-25 11:15] LABS: Band Neutrophils Percent 0 % (0-6); Lymphocytes Absolute Manual 0.95 K/mm3 (1.1-4.5); Lymphocytes Percent Manual 25 % (18-44); Monocytes Absolute Manual 0.68 K/mm3 (0.1-0.90); Monocytes Percent Manual 18 % (3-9); Neutrophils Absolute Manual 2.16 K/mm3 (1.7-7.2); Neutrophils Percent Manual 57 % (46-73); Total Cells Counted 100
[2022-03-25 11:16] LABS: Platelet Estimate Decreased (Adequate)
[2022-03-25 11:19] LABS: Alanine Aminotransferase 22 U/L (14-59); Albumin Level 3.1 g/dL (3.4-5.0); Alkaline Phosphatase 72 U/L (46-116); Anion Gap 8 mmol/L (8-16); Aspartate Amino Transferase 19 U/L (15-37); Bilirubin,Total 0.4 mg/dL (0.00-1.00); Blood Urea Nitrogen 19 mg/dL (7-18); Carbon Dioxide 32 mmol/L (21-32); Chloride 106 mmol/L (98-108); Estimated Glomerular Filt Rate 36; Glucose 100 mg/dL (70-99); NT Pro B Type Natriuretic Pept 627 pg/mL (0-125); Osmolality Calculated 304 mOsm/kg (285-295); Potassium 3.2 mmol/L (3.5-5.1); Sodium 146 mmol/L (136-145)
[2022-03-25 11:28] LABS: Nucleated Red Blood Cells 1 %
== END 2022-03-25 10:40 | disposition home or self-care (01) ==
LOC: CHSLAB 10:43
PROVIDERS: PCP Internal Medicine; Visit Provider Internal Medicine
DX: I50.9 Heart failure, unspecified (principal); N18.30 Chronic kidney disease, stage 3 unspecified
CPT/HCPCS: 36415; 80053; 83880; 85025; 85055

== ENCOUNTER 2022-04-13 10:21 | Outpatient (CLI) | payer MEDICARE, SELFPAY ==
[2022-04-13 10:42] LABS: Mean Corpuscular HGB Conc 33.3 g/dL (32.0-36.0); Mean Corpuscular Volume 99.1 fL (78.0-102.0); Mean Platelet Volume 9.2 fl (9.2-11.8); Platelet Count Result 68 K/mm3 (150-420); Red Blood Count 4.24 M/mm3 (4.20-5.40); Red Cell Distribution Width 13.2 % (11.6-14.4); White Blood Count 3.4 K/mm3 (4.8-10.8)
[2022-04-13 11:02] LABS: Neutrophils Percent Manual 55 % (46-73); Total Cells Counted 100
[2022-04-13 11:03] LABS: Band Neutrophils Percent 0 % (0-6); Lymphocytes Absolute Manual 0.98 K/mm3 (1.1-4.5); Lymphocytes Percent Manual 29 % (18-44); Monocytes Absolute Manual 0.54 K/mm3 (0.1-0.90); Monocytes Percent Manual 16 % (3-9); Neutrophils Absolute Manual 1.87 K/mm3 (1.7-7.2); Nucleated Red Blood Cells 1 %; Platelet Estimate Decreased (Adequate); Schistocytes None Seen (NORMAL)
[2022-04-13 11:17] LABS: Alanine Aminotransferase 18 U/L (14-59); Albumin Level 3.1 g/dL (3.4-5.0); Alkaline Phosphatase 73 U/L (46-116); Anion Gap 9 mmol/L (8-16); Aspartate Amino Transferase 19 U/L (15-37); Bilirubin,Total 0.4 mg/dL (0.00-1.00); Blood Urea Nitrogen 21 mg/dL (7-18); Carbon Dioxide 30 mmol/L (21-32); Chloride 106 mmol/L (98-108); Estimated Glomerular Filt Rate 36; Glucose 103 mg/dL (70-99); NT Pro B Type Natriuretic Pept 388 pg/mL (0-125); Osmolality Calculated 303 mOsm/kg (285-295); Potassium 3.6 mmol/L (3.5-5.1); Sodium 145 mmol/L (136-145); Total Protein 6.1 g/dL (6.4-8.2)
== END 2022-04-13 10:22 | disposition home or self-care (01) ==
LOC: CHSLAB 10:25
PROVIDERS: PCP Internal Medicine; Visit Provider Internal Medicine
DX: I50.9 Heart failure, unspecified (principal)
CPT/HCPCS: 36415; 80053; 83880; 85025

== ENCOUNTER 2022-05-31 07:48 | Outpatient (CLI) | payer MEDICARE, MEDICAID, SELFPAY ==
--- NOTE | ~2022-05-31 | CT_ITS ---
EXAMINATION: CT abdomen pelvis w con DATE: 05/31/2022 08:43 INDICATION: Thrombocytopenia TECHNIQUE: Computed tomography (CT) of the abdomen and pelvis was performed with 100 CC Omnipaque 350 intravenous contrast. Automated exposure control and iterative reconstruction technique were employe d. Exam dose: 770.56 mGy-cm total exam DLP. COMPARISON: 03/03/2022 CT pelvis 02/23/2022 CT abdomen pelvis FINDINGS: Mild discoid atelectasis or scarring at the lung bases. Cardiomegaly. No pericardial or pleural effusion. Status post cholecystectomy. This likely accounts for prominence of the common bile duct which measur es up to 1.9 cm diameter, tapering distally. No pancreatic duct dilatation. No hepatic, splenic, pancreatic, adrenal or renal space-occupying mass lesion. No splenomegaly. There is pancreatic atrophy/fatty replacement. No pancreatic calcification. No urinary tract calculus or hydroureteronephrosis. The uterus, urinary bladder and adnexal areas are unremarkable. Normal appendix. There is diverticulosis of the sigmoid and descending colon; no CT evidence of diver ticulitis. No bowel obstruction, bowel wall thickening, pneumatosis or intraperitoneal free air. Very small fat-containing umbilical hernia. Anterior left fifth through 7 subacute healing rib fractures. There are old rib fractures. No suspicious osteolytic or osteoblastic lesions are noted. IMPRESSION: Subacute left anterior fifth through seventh rib fractures; rib fractures Status post cholecystectomy, likely accounting for the prominent common bile duct Normal appendix Diverticulosis of left colon; no CT evidence of diverticulitis Reviewed, dictated and finalized at Location A. Reviewed, dictated and finalized at location B. R PACKER AND GRADER IMPRESSION: Subacute left anterior fifth through seventh rib fractures; rib fr actures Status post cholecystectomy, likely accounting for the prominent common bile du ct Normal appendix Diverticulosis of left colon; no CT evidence of diverticulitis
[2022-05-31 08:13] LABS: Estimated Glomerular Filt Rate 36
== END 2022-05-31 07:49 | disposition home or self-care (01) ==
LOC: CHSIMG 07:49
PROVIDERS: PCP Internal Medicine; Visit Provider Internal Medicine Hematology & Oncology
DX: D69.6 Thrombocytopenia, unspecified (principal)
CPT/HCPCS: 74177; Q9967

== ENCOUNTER 2022-06-09 09:23 | Emergency (ER) | payer MEDICARE, MEDICAID, SELFPAY ==
--- NOTE | ~2022-06-09 | CT_ITS ---
Noncontrast CT scan of the cervical spine Technique: Multiple contiguous axial [address] images of the cervical spine were obtained and rec onstructed in 2D sagittal and coronal planes on the acquisition scanner. Dose reduction technique was used on this scan by utilizing automated exposure control, adjustment of the mA and/or kV according to patient size. COMPARISON: 03/03/2022 Clinical History: Pain Findings: No fracture identified. Grade I anterolisthesis of T1 over T2 noted. Intervertebral disc sp aces are well preserved. No spinal canal stenosis identified. No prevertebral soft tissue swelling. Impression: No fracture. Grade 1 anterolisthesis of T1 over T2. Reviewed, dictated and finalized at location [] S REGISTERED NURSE RN Impression: No fracture. Grade 1 anterolisthesis of T1 over T2.
--- NOTE | ~2022-06-09 | CT_ITS ---
Non-contrast CT scan of the Pelvis Clinical indication: Posterior pelvic bruising, status post fall Technique: 2.5 mm axial scans were obtained through pelvis without intravenous or oral contrast. Dos e reduction technique was used on this scan by utilizing automated exposure control and iterative rec onstruction technique. The dose-length product (DLP) was 398.86 mGy-cm. Findings: Pelvic bones appear intact. No fracture seen in the pelvic bones or proximal femora. Bilate ral hip and SI joint spaces are preserved. No hip joint effusion identified. Visualized musculature about the pelvis and bilateral hips appears unremarkable. Visualized bowel loops are unremarkable. No ascites. Urinary bladder unremarkable. No pelvic mass gigi ntified. Impression: No significant abnormality seen. Reviewed, dictated and finalized at location [] CTOR FUNERAL Impression: No significant abnormality seen.
--- NOTE | ~2022-06-09 | CT_ITS ---
Non-contrast Head CT History: Status post fall COMPARISON: 03/03/2022 Technique: Axial non-contrast imaging of the brain was performed. Dose reduction technique was used on this scan by utilizing automated exposure control and iterative reconstruction technique. The dose -length product (DLP) was 605.33 mGy-cm. Findings: There is no evidence of intracranial hemorrhage, mass lesion, or acute infarct. Brain par enchyma appears normal. The ventricles and subarachnoid spaces are normal in size. The calvarium ap pears normal. The visualized paranasal sinuses and mastoid air cells are clear. Impression: No significant abnormality seen. Reviewed, dictated and finalized at location [] OWS TECHNICAL SPECIALIST Impression: No significant abnormality seen.
--- NOTE | ~2022-06-09 | XR_ITS ---
Portable chest x-ray Comparison: 03/03/2022 Clinical History: Status post fall Findings: Lungs are clear, without focal consolidation or pleural effusion. Cardiomediastinal silho uette is stable. Bones and soft tissues are unremarkable. Impression: Clear lungs. Reviewed, dictated and finalized at location [] END TESTER Impression: Clear lungs.
[2022-06-09 09:25] VITALS: BP 102/56; PULSE 62; RESP 20; TEMP 36.7; O2SAT 100
--- NOTE | 2022-06-09 09:45 | ECG_ITS ---
Measurements Intervals Sawyer Rate: 67 P: 80 VA: 211 QRS: 26 QRSD: 107 T: 60 QT: 409 QTc: 434 Interpretive Statements SINUS RHYTHM WITH FIRST DEGREE AV BLOCK ST DEVIATION AND MODERATE T-WAVE ABNORMALITY, CONSIDER LATERAL ISCHEMIA [-0.1+ mV T- WAVE IN I/aVL/V5/V6] COMPARED TO ECG 03/03/2022 18:33:26 THE LATERAL T-WAVE CHANGES ARE NEW, AND PVCS HAVE RESOLVED. Electronically Signed On 06-09-2022 15:52:23 CONE TENDER by Eliza Herbert M.D.
[2022-06-09 10:03] LABS: Hematocrit 37.7 % (35.0-42.0); Hemoglobin 12.8 g/dL (11.7-13.8); Immature Platelet Fraction Pct 1.7 % (1.0-7.0); Mean Corpuscular Hemoglobin 32.8 pg (27.0-31.0); Mean Corpuscular Volume 96.7 fL (78.0-102.0); Mean Platelet Volume 9.1 fl (9.2-11.8); Platelet Count Result 41 K/mm3 (150-420); Red Cell Distribution Width 12.4 % (11.6-14.4); White Blood Count 2.2 K/mm3 (4.8-10.8)
[2022-06-09 10:18] LABS: Alanine Aminotransferase 12 U/L (14-59); Albumin Level 2.6 g/dL (3.4-5.0); Alkaline Phosphatase 85 U/L (46-116); Anion Gap 6 mmol/L (8-16); Aspartate Amino Transferase 13 U/L (15-37); Bilirubin,Total 0.5 mg/dL (0.00-1.00); Blood Urea Nitrogen 19 mg/dL (7-18); Calcium 8.7 mg/dL (8.5-10.1); Carbon Dioxide 31 mmol/L (21-32); Chloride 101 mmol/L (98-108); Estimated Glomerular Filt Rate 34; Glucose 112 mg/dL (70-99); Osmolality Calculated 289 mOsm/kg (285-295); Potassium 3.1 mmol/L (3.5-5.1); Sodium 138 mmol/L (136-145); Total Protein 5.6 g/dL (6.4-8.2); Troponin I 13.2 ng/L (0.00-60.4)
[2022-06-09] MEDS: SODIUM CHLORIDE 0.9% IV 500 ML 999 ML IV CONT (10:23)
[2022-06-09 10:24] LABS: Total Cells Counted 100
[2022-06-09] MEDS: ACETAMINOPHEN 325 MG TABLET 650 MG PO (10:24)
[2022-06-09 10:25] LABS: Band Neutrophils Percent 0 % (0-6); Lymphocytes Absolute Manual 0.61 K/mm3 (1.1-4.5); Lymphocytes Percent Manual 28 % (18-44); Monocytes Absolute Manual 0.33 K/mm3 (0.1-0.90); Monocytes Percent Manual 15 % (3-9); Neutrophils Absolute Manual 1.25 K/mm3 (1.7-7.2); Neutrophils Percent Manual 57 % (46-73); Platelet Estimate Decreased (Adequate)
[2022-06-09 12:30] VITALS: BP 114/75; PULSE 74; RESP 20; O2SAT 97
--- NOTE | 2022-06-09 15:11 | ED.FALL ---
HPI - Fall General Chief Complaint: Fall Stated Complaint: Ambulance Time Seen by Provider: 06/09/22 09:27 Source: patient, EMS and RN notes reviewed Mode of arrival: EMS Limitations: other (pt did not speak but she was responsive and agreed to eat a meal) History of Present Illness MD complaint: fall Onset (ago): hour(s) (3) Fall from: out of bed Fall witnessed: no Place fall occurred: snf/SNF Loss of consciousness: none Prolonged down time: no Severity: mild Severity scale (1-10): 2 Quality: dull Associated symptoms (after fall): denies Related Data Home Medications Medication Instructions Recorded Confirmed apixaban 5 mg tablet (Eliquis) 5 tablet PO DAILY 12/04/21 03/03/22 buspirone 5 mg tablet 5 tablet PO TID 12/04/21 03/03/22 divalproex 250 mg tablet,delayed 250 tablet PO DAILY 12/04/21 03/03/22 release divalproex 500 mg tablet,delayed 500 tablet PO BID 12/04/21 03/03/22 release famotidine 40 mg tablet 40 tablet PO DAILY 12/04/21 03/03/22 lorazepam 0.5 mg tablet 0.5 tablet PO TID 12/04/21 03/03/22 memantine 5 mg tablet 5 tablet PO BID 12/04/21 03/03/22 metoprolol tartrate 25 mg tablet 12.5 mg PO BID 12/04/21 03/03/22 propafenone 225 mg 225 cap PO BID 12/04/21 03/03/22 capsule,extended release 12 hr rosuvastatin 10 mg tablet 10 tablet PO DAILY 12/04/21 03/03/22 sertraline 50 mg tablet 50 tablet PO DAILY 12/04/21 03/03/22 aspirin 81 mg tablet,delayed 81 mg PO DAILY 02/23/22 03/03/22 release cholecalciferol (vitamin D3) 25 25 mcg PO DAILY 02/23/22 03/03/22 mcg (1,000 unit) tablet (Vitamin D3) Allergies Allergy/AdvReac Type Severity Reaction Status Date / Time No Known Allergies Allergy Unverified 03/03/22 18:11 Review of Systems Review of Systems: All systems reviewed & are unremarkable except as noted in HPI and below Constitutional: Constitutional: Reports no additional constitutional complaints Eyes: Eyes: Reports no additional eye complaints ENT: Reports system reviewed and no additional complaints, except as documented Cardiovascular: Cardiovascular: Reports no additional cardiovascular complaints Respiratory: Respiratory: Reports no additional respiratory complaints Gastrointestinal: Gastrointestinal: Reports no additional gastrointestinal complaints Genitourinary: Genitourinary: Reports no additional female genitourinary complaints Musculoskeletal: Musculoskeletal: Reports no additional musculoskeletal complaints Integumentary/Breasts: Skin/Breast: Reports system reviewed and no additional complaints, except as docu Neurologic: Reports system reviewed and no additional complaints, except as documented Psychiatric: Psychiatric: Reports no additional psychiatric complaints Endocrine: Endocrine: Reports no additional endocrine complaints Hematologic/Lymphatic: Hematologic/Lymphatic: Reports no additional hematologic/lymphatic complaints Allergic/Immunologic: Allergic/Immunologic: Reports no additional allergic/immunologic complaints PMFSH Past Medical History Medical History Cystitis Fall Generalized weakness Pulmonary edema Social History Social History Alcohol intake: never Exam Const: General: no acute distress and well nourished Nutritional Appearance: well nourished Orientation/consciousness: patient oriented x3 Limitations: no limitations HENMT: Head: normal to inspection Ears: external ears normal, TM's normal bilaterally and EAC's normal Face/Nose/Sinus: Normal external nose present, Normal nares present, normal facial exam and sinuses nontender Face and sinus: normal facial exam and sinuses nontender Mouth: Yes Normal oral and palatal mucosa present and Yes moist mucous membranes Teeth and gingiva: dentition normal Throat: posterior oropharynx normal Eyes: Conjunctivae: conjunctivae normal Pupils: Equal, round and reactive pu
[2022-06-09 15:25] LABS: Add Urine Microscopic? YES; Appearance Urine Clear (Clear); Bilirubin Urine Negative (Negative); Blood Urine Negative (Negative); Color Urine Light Yellow (Yellow); Glucose Urine UA Negative (Negative); Ketones Urine Negative (Negative); Leukocyte Esterase Ur Trace (Negative); Nitrate Urine Negative (Negative); Protein Urine Negative (Negative)
[2022-06-09 15:26] LABS: Bacteria Urine 3+ /hpf; RBC Urine None seen /hpf (0-2); Squamous Epithelial Cell Urine Few /hpf (Few); WBC Urine 0-3 /hpf (0-3)
[2022-06-09] MEDS: POTASSIUM CHLORIDE 20 MEQ TABLET 40 MEQ PO (15:29)
[2022-06-09 15:30] VITALS: BP 112/58; PULSE 69; RESP 20; TEMP 36.9; O2SAT 97
--- NOTE | 2022-06-09 16:39 | PC.NURSE ---
1050 pt up to commode, urine collected. assisted back to bed. call riggs in reach. 1230 pt sleeping 1300 pt sleeping , call riggs in reach. [address] pt [address] tv. declined food 1610 pt incontinent of urine, linens saturated 1620 pt watching tv. sandwich and cottage cheese given to pt. awaiting arrival of [facility] staff.
[2022-06-09 16:43] VITALS: BP 104/75; PULSE 64; RESP 20; TEMP 36.9; O2SAT 97
--- NOTE | 2022-06-09 16:53 | PC.NURSE ---
pt loaded into person vehicle. rx called to [facility]
== END 2022-06-09 16:57 | disposition home or self-care (01) ==
PROVIDERS: Emergency Provider Emergency Medicine; PCP Internal Medicine
DX: E87.6 Hypokalemia (principal); W19.XXXA Unspecified fall, initial encounter; Y92.129 Unspecified place in nursing home as the place of occurrence of the external cause
CPT/HCPCS: 36415; 70450; 71045; 72125; 72192; 80053; 81001; 84484; 85025; 85055; 93005; 96360; 99284; A9270; J7040

== ENCOUNTER 2022-06-15 19:54 | Emergency (ER) | payer MEDICARE, MEDICAID, SELFPAY ==
[2022-06-15 20:00] VITALS: BP 102/70; PULSE 80; RESP 14; TEMP 36.4; O2SAT 95
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
--- NOTE | 2022-06-15 20:29 | PC.NURSE ---
PD on site. Brother's contact information provided.
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
[2022-06-15 23:18] VITALS: BP 95/54; PULSE 86; RESP 23
[2022-06-15 23:30] VITALS: PULSE 83; RESP 19
[2022-06-15 23:31] VITALS: BP 95/48; PULSE 83; RESP 26
[2022-06-15 23:50] VITALS: PULSE 84; RESP 15
[2022-06-16] VITALS (15 sets, daily range): BP systolic 93–116; BP diastolic 52–84; PULSE 77–95; RESP 13–31; O2SAT 91–93
--- NOTE | 2022-06-16 01:20 | PC.NURSE ---
Per verbal order from Dr. Christopher 1000mg Rocephin administered IV instead of 500mg IM.
[2022-06-16] MEDS: LACTATED RINGERS 1,000 ML 999 ML IV CONT (01:21)
== END 2022-06-16 04:38 ==
LOC: ANHED 06-16 01:15
PROVIDERS: Emergency Provider Emergency Medicine; PCP Internal Medicine
DX: T76.21XA Adult sexual abuse, suspected, initial encounter (principal); S30.0XXA Contusion of lower back and pelvis, initial encounter; S60.211A Contusion of right wrist, initial encounter; S50.01XA Contusion of right elbow, initial encounter; S40.021A Contusion of right upper arm, initial encounter; S70.12XA Contusion of left thigh, initial encounter; S70.11XA Contusion of right thigh, initial encounter; Z79.01 Long term (current) use of anticoagulants; Z79.82 Long term (current) use of aspirin; X58.XXXA Exposure to other specified factors, initial encounter
CPT/HCPCS: 96365; 99285; J0696; J7120